=== PATIENT | male | born 1955 | race Native Hawaiian/Other Pacific Islander ===

== ENCOUNTER 2019-01-20 10:38 | Outpatient (CLI) | payer BC, OTHER | END 2019-01-20 20:18 | disposition home or self-care (01) | LOC: LABW 10:38 | DX: K52.9 Noninfective gastroenteritis and colitis, unspecified (principal) | CPT/HCPCS: 36415; 83516; 86255; 86671; 87015; 87045; 87324; 87328; 87329; 87449; 87899 ==